=== PATIENT | male | born 2000 | race Two or more races ===

== ENCOUNTER 2024-03-22 18:22 | Emergency (ER) | payer BC ==
[~2024-03-22] VITALS: Ht 172.7 cm; Wt 81.6 kg
[2024-03-22 18:31] VITALS: BP 119/85; TEMP 98.7; O2SAT 98
[2024-03-22] MEDS ORDERED: ONDANSETRON HCL/PF 4 MG/2 ML VIAL ONE (18:55)
[2024-03-22] MEDS ORDERED: MORPHINE SULFATE INJ 4 MG/ML DISP.SYRIN ONE (18:56)
[2024-03-22] MEDS: ONDANSETRON HCL/PF - ER 4 MG/2 ML VIAL IV ONE (19:00)
[2024-03-22] MEDS: MORPHINE SULFATE INJ 2 MG/ML DISP.SYRIN IV ONE (19:02)
[2024-03-22] MEDS ORDERED: ACET-2030 PO (19:16)
[2024-03-22] MEDS ORDERED: IBUP-1957 PO (19:16)
[2024-03-22] MEDS ORDERED: OXYC-128 PO (19:48)
[2024-03-22] MEDS ORDERED: oxyCODONE/APAP (5/325 MG) 1 UDTAB TABLET ONE (20:23)
[2024-03-22] MEDS ORDERED: IBUPROFEN 400 MG TABLET ONE (20:23)
[2024-03-22] MEDS: IBUPROFEN 400 MG TABLET PO ONE (20:26)
[2024-03-22] MEDS: oxyCODONE/APAP (5/325 MG) 1 UDTAB TABLET PO ONE (20:26)
== END 2024-03-22 20:30 | disposition home or self-care (01) ==
LOC: ER 18:22
DX: S82.432A Displaced oblique fracture of shaft of left fibula, initial encounter for closed fracture (principal); W22.8XXA Striking against or struck by other objects, initial encounter; Y93.66 Activity, soccer; Y92.89 Other specified places as the place of occurrence of the external cause; Y99.8 Other external cause status
CPT/HCPCS: 99284; 96374; 29515; 96375; 73610; J2270; J2405 ×2